=== PATIENT | female | born 1970 | race Caucasian/White ===

== ENCOUNTER 2024-01-31 04:54 | Emergency (ER) | payer BC ==
[~2024-01-31] VITALS: Ht 165.1 cm; Wt 68.0 kg
[2024-01-31 05:02] VITALS: O2SAT 96
[2024-01-31 05:25] LABS: CLARITY URINE CLOUDY (CLEAR); COLOR URINE ORANGE (YELLOW); GLUCOSE URINE NEGATIVE (NEGATIVE); KETONES URINE TRACE (NEGATIVE); LEUKOCYTE ESTERASE URINE 3+ (NEGATIVE); NITRITE URINE NEGATIVE (NEGATIVE); OCCULT BLOOD URINE 3+ (NEGATIVE); PROTEIN URINE 1+ (NEGATIVE); SPECIFIC GRAVITY URINE 1.008 (1.005-1.030)
[2024-01-31 05:32] VITALS: BP 115/69; PULSE 62; RESP 18; TEMP 98.2
[2024-01-31] MEDS ORDERED: NITR-87 MT (06:04)
[2024-01-31] MEDS ORDERED: IBUP-1523 MT (06:04)
[2024-01-31] MEDS ORDERED: CRAN1CAP5 MT (06:04)
[2024-01-31] MEDS ORDERED: IBUPROFEN 600MG TABLET PO ONE (06:15)
[2024-01-31] MEDS ORDERED: ACETAMINOPHEN 325MG TABLET PO ONE (06:15)
[2024-01-31 06:57] LABS: RBC URINE TNTC /hpf (0-2)
[2024-01-31 07:02] LABS: WBC URINE 50-100 /hpf (0-2)
[2024-01-31 07:04] LABS: SQUAMOUS EPITHELIAL CELL URINE 1+ /lpf (RARE/1+)
[2024-01-31 07:24] LABS: BACTERIA URINE 1+
== END 2024-01-31 06:15 | disposition home or self-care (01) ==
LOC: ER 05:08
DX: R30.0 Dysuria (principal); Z90.49 Acquired absence of other specified parts of digestive tract
CPT/HCPCS: 81003; 81025; 87077; 87186; 99283